=== PATIENT | female | born 2005 | race Hispanic/Latino ===

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

== ENCOUNTER 2025-05-11 23:06 | Emergency (ER) | payer BC ==
[~2025-05-11] VITALS: Ht 157.5 cm; Wt 80.7 kg
[~2025-05-11 23:06] MED LIST: DICY20TA2 PO; FAMO-136 PO; ONDA-243 PO
--- NOTE | 2025-05-11 23:22 | ERN ---
ED Note History of Present Illness Stated Complaint: EPIGASTRIC PAIN Chief Complaint: Abdominal Pain Time Seen by MD: 23:17 Dictation: This is a 20-year-old female who presented to the emergency room with the epigastric pain after eating that started on 05/10 2025. Apparently she went to the urgent care center where they did some blood work and told her to go to the emergency room if the pain persisted she stated that she had cramping pain with some nausea no diarrhea. No hematemesis or melena. She stated that she was on her period and she has been having vaginal bleeding. She is a little late on her monthly cycle. Temperature 98.1 pulse 80 respirations 16 blood pressure 132/78 with a pulse oximetry of 100% on room air Allergies: Coded Allergies: No Known Allergies (Unverified Allergy, Unknown, 10/17/21) Home Meds Active Scripts Amoxicillin (Amoxicillin) 500 Mg Capsule, 1 CAP PO BID for 10 Days, #20 CAP 0 Refills Prov:CHEYANNE LU MD 05/12/25 Ondansetron (Ondansetron Odt) 4 Mg Tab.rapdis, 4 MG PO QIDP, #28 TAB Prov:SUMMER PEREZ 10/17/21 Dicyclomine HCl (Bentyl) 20 Mg Tab, 20 MG PO QID, #28 TAB Prov:SUMMER PEREZ 10/17/21 Famotidine (Pepcid) 20 Mg Tablet, 20 MG PO BID, #60 TAB Prov:SUMMER PEREZ 10/17/21 Past Medical History Past Medical History: No Pertinent History, Depression Surgical History: None Family History: Negative Social History: Negative LMP: May 10, 2025 RN Note Reviewed/Agreed w/PFSH: Yes Review of System Dictation Constitutional: Negative for fever,chills, and weight loss Eyes: Negative for injury, pain,redness, and discharge ENT: Negative for injury,pain or swelling Cardiovascular: Negative for chest pain, palpitations, and edema Respiratory: Negative for shortness of breath, cough, and wheezing, Abdomen/GI: Positive for upper abdominal pain, denied nausea, vomiting, diarrhea, and constipation Back: Negative for injury and pain : Negative for injury, bleeding and discharge MS/Extremity: Negative for injury and deformity Skin: Negative for rash, and discoloration Neuro: Negative for headache, weakness, numbness, tingling, and seizure Psych: Negative for suicide ideation, homicidal ideation, and hallucinations Initial Vital Sign VS Vital Signs Date Time Temp Pulse Resp B/P (MAP) Pulse Ox O2 Delivery O2 Flow Rate FiO2 05/11/25 23:08 98.1 80 16 132/78 100 Room Air 05/12/25 02:35 0 21 Physical Exam Dictation General: awake, alert, NAD Head/Face: Normocephalic, atraumatic Eyes: PERRL, EOMI, vision at baseline ENT: oral cavity clear, TMs clear, no signs of infection Neck: Trachea midline, supple, no nuchal rigidity Cardiovascular: RRR, normal S1/S2, No MRGs, no JVD Respiratory: CTAB, no respiratory distress, No rales or wheezes Abdomen: Soft, mild tenderness to deep palpation of the epigastrium. No Vu's point tenderness., non-distended, normal bowel sounds, no guarding or rebound. Skin: Warm, dry, normal turgor, no rash MS/Extremity: Pulses equal, no cyanosis, neurovascular intact, FROM Neuro: COAx4, GCS 15, strength 5/5, CN 2-12 intact, normal cerebellar exam, normal gait, Psych: Normal behavior, mood, and affect normal Extremities-trace edema without any palpable cords, Homans sign is negative Results (Laboratory/Radiology) Laboratory/Radiology Laboratory Tests Test 05/11/25 23:26 05/12/25 00:13 White Blood Count 8.4 K/uL (4.8-10.8) Red Blood Count 4.23 MIL/uL (4.00-5.50) Hemoglobin 12.4 g/dL (12.0-16.0) Hematocrit 36.8 % (36-48) Mean Corpuscular Volume 87.0 fL (79-99) Mean Corpuscular Hemoglobin 29.3 pg (27.0-33.0) Mean Corpuscular Hemoglobin Concent 33.7 g/dL (32.0-36.0) Red Cell Distribution Width 11.9 % (11.0-15.5) Platelet Count 251 K/uL (130-400) Mean Platelet Volume 8.9 fL (7.5-10.5) Immature Granulocyte % (Auto) 0.5 % (0-1) Neutrophils (%) (Auto) 59.1 % (40.0-77.0) Lymphocytes (%) (Auto) 30.5 % (21.0-51.0) Monocytes (%) (Auto) 7.8 % (3.0-13.0) Eosinophils (%) (Auto) 1.7 % (0.0-8.0) Basophils (%) (Auto) 0.4 % (0.0-5.0) Neutrophils # (Auto) 5.0 K/uL (1.8-7.7) Lymphocytes # (Auto) 2.6 K/uL (1.0-4.8) Monocytes # (Auto) 0.7 K/uL (0.1-1.0) Eosinophils # (Auto) 0.14 K/uL (0.00-0.70) Basophils # (Auto) 0.03 K/uL (0.00-0.20) Absolute Immature Granulocyte (auto 0.04 K/uL (0-1) Nucleated Red Blood Cells 0.0 % (0.0-0.19) Sodium Level 140 mmol/L (136-145) Potassium Level 3.9 mmol/L (3.5-5.1) Chloride Level 104 mmol/L (101-111) Carbon Dioxide Level 29 mmol/L (21-32) Blood Urea Nitrogen 8 mg/dL (7-18) Creatinine 0.6 mg/dL (0.5-1.0) Glomerular Filtration Rate Calc 130 mL/min (>90) Random Glucose 98 mg/dL (70-105) Total Calcium 9.2 mg/dL (8.5-10.1) Total Bilirubin 0.2 mg/dL (0.2-1.0) Aspartate Amino Transf (AST/SGOT) 15 U/L (10-37) Alanine Aminotransferase (ALT/SGPT) 28 U/L (12-78) Alkaline Phosphatase 73 U/L (50-136) Total Protein 6.5 g/dL (6.0-8.3) Albumin 3.2 g/dL (3.5-5.0) L Lipase 34 U/L (16-77) Human Chorionic Gonadotropin, Quant 660 mIU/mL (0-5) H Urine Color LIGHT-YELLOW (YELLOW) Urine Appearance CLEAR (CLEAR) Urine pH 5.5 (5.0-8.0) Urine Specific [place] 1.025 (1.001-1.031) Urine Protein NEGATIVE mg/dL (NEGATIVE) Urine Glucose (UA) NEGATIVE mg/dL (NEGATIVE) Urine Ketones NEGATIVE mg/dL (NEGATIVE) Urine Occult Blood LARGE (NEGATIVE) H Urine Nitrate NEGATIVE (NEGATIVE) Urine Bilirubin NEGATIVE mg/dL (NEGATIVE) Urine Urobilinogen 0.2 mg/dL (0.2-1.0) Urine Leukocyte Esterase 25 Lore/uL (NEGATIVE) H Urine RBC TNTC /HPF (0-1) H Urine WBC 11-25 /HPF (0-1) H Urine Squamous Epithelial Cells FEW /HPF (0-2) Urine Bacteria None /HPF (None Seen) Urine HCG, Qualitative POSITIVE (NEGATIVE) H Labs Reviewed?: Yes ED Course ED Course Orders Procedure Category Date Status Time Cbc With Differential LAB 05/11/25 Complete 23:18 Comprehensive LAB 05/11/25 Complete Metabolic Panel 23:18 Hcg,Quantitative LAB 05/11/25 Complete 23:18 Urinalysis Profile LAB 05/11/25 Complete 23:18 Lidocaine Hcl 2% PHA 05/11/25 Complete Viscous (Lidocaine Hcl 23:30 Mag/Alum/Simeth 30ml PHA 05/11/25 Complete (Maalox Plus 30ml) 23:30 Dicyclomine Hcl PHA 05/11/25 Complete (Bentyl 10mg/5ml 23:30 Lipase LAB 05/11/25 Complete 23:18 ,Urine Test LAB 05/12/25 Complete 00:06 Culture Urine JSOEF 05/12/25 In Process 01:05 Ceftriaxone 1g Vial PHA 05/12/25 Complete (Rocephine 1g Inj) 02:30 Current Medications Medications (Trade) Dose Ordered Sig/Igor Route PRN Reason Start Time Stop Time Status Last Admin Dose Admin Al Hydroxide/Mg Hydroxide (MAALox PLUS 30ML) 30 ml ONCE ONCE PO 05/11/25 23:30 05/11/25 23:31 DC 05/11/25 23:28 Ceftriaxone Sodium (ROCEphine 1G INJ) 1 gm ONCE ONCE IM 05/12/25 02:30 05/12/25 02:31 DC 05/12/25 02:26 Dicyclomine HCl (Bentyl 10mg/5ml Syrup) 10 mg ONCE ONCE PO 05/11/25 23:30 05/11/25 23:31 DC 05/11/25 23:28 Lidocaine HCl (Lidocaine HCl 2% Viscous) 10 ml ONCE ONCE PO 05/11/25 23:30 05/11/25 23:31 DC 05/11/25 23:28 Vital Signs Date Time Temp Pulse Resp B/P (MAP) Pulse Ox O2 Delivery O2 Flow Rate FiO2 05/12/25 02:35 98.4 77 18 130/81 99 Room Air* 0 21 05/11/25 23:08 98.1 80 16 132/78 100 Room Air We will perform diagnostic labs, advanced imaging and administer medications according to the patient's complaint. Once the results are available, will review and personally interpreted the labs to rule out any acute life- threatening emergency the trach require immediate intervention and treatment. I will then re-evaluate the patient after treatment and diagnostic exams have return to determine whether the patient requires any further testing, can safely be discharged home or need further admission to hospital for additional treatment and evaluation. 12:35 a.m. labs reviewed CBC and CMP are within normal limits lipase is 34. Serum quantitative hCG was 660 . Given this I pursued urine studies including urinalysis and urine test to confirm. 1:13 a.m. urinalysis showed positive leuko esterase and increased WBC as well as some blood. I had a long discussion with the patient about all the test results and my opinion that epigastric pain is likely gastritis or gastroesophageal reflux however biliary colic can not be ruled out. Her presentation today is complicated by positive serum test 2:15 a.m. Instructions to complete the antibiotics for the UTI. Repeat quantitative serum test to look at the trend as the current possibilities are a. Early b. threat of Urine test was positive. I updated the patient on all the tests so far and the scenarios as above. Patient stated that she would definitely have serial HCG in the next 3-4 weeks however she did not want to discuss any of these tests with her parents. Medical Decision Making MDM Differential diagnosis: Gastritis, esophagitis, gastroesophageal reflux disease, biliary colic, peptic ulcer disease, cholecystitis Rationale: Tests considered and ordered secondary to shared decision making include: Previous outside records reviewed: Old ER visits. Risk of complication and/or morbidity or mortality of patient management: None Medications-Per medication reconciliation Need for hospitalization: Patient does not meet criteria for hospitalization. Need for emergency major/minor surgery: No There are no social concerns with this patient. Prescription drug management Prescriptions will include symptomatic care Patient's prior external medical records from other ER visits were reviewed by me as indicated. Prior testing and results from previous visits were reviewed. Prior tests were taken into account with medical decision making and resource utilization, independent historian/historians were used to obtain complete medical history. I independently interpreted the test that were performed, results were reviewed by me and considered findings on radiology if ordered. Medical management and examination interpretation discussions were had by me with other qualified healthcare professionals as indicated for the patient's care. Problem List Problem List: (1) UTI (urinary tract infection) (2) Positive blood test (3) Positive urine test (4) Vaginal bleeding affecting early (5) Gastritis DX & DISP Disposition: Discharge Departure Impression: Primary Impression: Gastritis Additional Impressions: UTI (urinary tract infection), Positive blood test, Positive urine test, Vaginal bleeding affecting early Condition: Stable Scripts Amoxicillin (Amoxicillin) 500 Mg Capsule 1 CAP PO BID for 10 Days, #20 CAP 0 Refills Prov: CHEYANNE LU MD 05/12/25 Additional Instructions: Patient and the caregiver have been informed of all the diagnostic tests and the imaging conducted during the today's visit to the emergency room and has verbalized understanding of the results I have personally reviewed and interpreted all diagnostic exams performed here in the ER today as well as the vital signs documented by the nursing staff. The patient is now being discharged to home and should follow up with the primary care physician or the specialist as directed by the ER staff. Follow-up with primary care provider in 1 to 2 days. Take medications as directed here in the emergency room. Okay to continue home medications unless otherwise discussed during your visit in the emergency room today. Return to your nearest emergency room if symptoms worsen or if there is no improvement. Call 911 if you need immediate assistance. Take Tylenol or Motrin [id number] as needed and if no contraindications are present. Increase oral hydration. A wound culture or urine culture was ordered here in the emergency room department please follow-up with primary care provider and advise them to get repeat ports from our facility. If you had any Reggie wrap/splints that were applied here, please do not remove them until you see your primary care or specialty. Instructions to complete the antibiotics for the UTI. Repeat quantitative serum test to look at the trend as the current possibilities are a. Early b. threat of Referrals: SELF,REFERRAL (PCP) CHEYANNE LU MD May 11, 2025 23:22
[2025-05-11] MEDS: DICYCLOMINE HCL 10 MG/5 ML ML PO ONE (23:28)
[2025-05-11] MEDS: LIDOCAINE HCL 2% VISCOUS 15 ML UDCUP PO ONE (23:28)
[2025-05-11] MEDS: MAG/ALUM/SIMETH 30 ML UDCUP PO ONE (23:28)
[2025-05-11 23:34] LABS: IMMATURE GRANULOCYTE ABSOLUTE 0.04 K/uL (0-1); NUCLEATED RED BLOOD CELLS 0.0 % (0.0-0.19); PLATELET COUNT (AUTO) 251 K/uL (130-400); RED BLOOD CELL COUNT(AUTO) 4.23 MIL/uL (4.00-5.50); RED CELL DISTRIBUTION WIDTH 11.9 % (11.0-15.5); WHITE BLOOD COUNT (AUTO) 8.4 K/uL (4.8-10.8)
[2025-05-11 23:42] LABS: CREATININE 0.6 mg/dL (0.5-1.0); GLOMERULAR FILTR. RATE CALC 130.0 mL/min (>90); GLUCOSE,RANDOM 98.0 mg/dL (70-105); SODIUM SERUM 140.0 mmol/L (136-145); UREA NITROGEN, BLOOD 8.0 mg/dL (7-18)
[2025-05-11 23:53] LABS: ASPARTATE AMINOTRANSFERASE 15.0 U/L (10-37); HCG,QUANTITATIVE 660.0 mIU/mL (0-5); TOTAL PROTEIN, SERUM 6.5 g/dL (6.0-8.3)
[2025-05-12 01:02] LABS: ADD UA MICROSCOPIC YES; APPEARANCE,URINE CLEAR (CLEAR); GLUCOSE, URINE (UA) NEGATIVE (NEGATIVE); LEUKOCYTE ESTERASE ,URINE 25 Leu/uL (NEGATIVE); NITRATE,URINE NEGATIVE (NEGATIVE); OCCULT BLOOD,URINE LARGE (NEGATIVE)
[2025-05-12 01:05] LABS: SQUAMOUS EPITHELIAL CELL,UR FEW /HPF (0-2)
[2025-05-12] MEDS ORDERED: AMOX500C2 PO (02:21)
[2025-05-12 02:35] VITALS: BP 130/81; PULSE 77; RESP 18; TEMP 98.4; O2SAT 99
== END 2025-05-12 02:42 | disposition home or self-care (01) ==
LOC: EDH 23:06
DX: O99.611 Diseases of the digestive system complicating pregnancy, first trimester (principal); K29.70 Gastritis, unspecified, without bleeding; O23.41 Unspecified infection of urinary tract in pregnancy, first trimester; N39.0 Urinary tract infection, site not specified; O20.9 Hemorrhage in early pregnancy, unspecified; O26.891 Other specified pregnancy related conditions, first trimester; R10.2 Pelvic and perineal pain; Z3A.01 Less than 8 weeks gestation of pregnancy
CPT/HCPCS: 99284; 80053; 84702; 83690; 85025; 87086; 81001; 81025; 36415; 96372; J0696